=== PATIENT | female | born 1950 | race Caucasian/White ===

== ENCOUNTER → 2017-03-05 | Outpatient (CLI) | payer OTHER ==
[~2017-03-05] MED LIST: ASPI81TA28 PO; ATOR10TA82 PO; CHOL2000 PO; FEXO1TAB46 PO; HYDC25 PO; LEVO88TA PO; MELO15TA4 PO
[2017-03-05 12:50] LABS: URINE APPEARANCE CLEAR (CLEAR); URINE BILIRUBIN NEG (NEG); URINE COLOR YELLOW; URINE EPITHELIAL CELL AUTO >30 /lpf (0-5); URINE NITRITE NEG (NEG); URINE SPECIFIC GRAVITY 1.017 (1.000-1.030); UROBILINOGEN NEG (NEG); ZZUR CULT IF INDIC CLEAN CATCH YES
[2017-03-05 12:55] LABS: MANUAL MICROSCOPIC REQUIRED? NO; REVIEW REQ? NO
[2017-03-05 12:58] LABS: BASO % 0.3 %; BASO ABS # 0.02 K/uL (0-0.2); COMPLETE YES; EOS % 4.8 %; HEMATOCRIT 45.2 % (37-47); IG% 0.1 %; LYMPH % 36.1 %; LYMPH ABS # 2.49 K/uL (1.2-3.4); MEAN CELL VOLUME 89.3 fL (80-100); MEAN CORPUSCULAR HEMOGLOBIN 29.8 pg (25-34); MEAN CORPUSCULAR HGB CONC 33.4 g/dl (32-36); MEAN PLATELET VOLUME 11.9 fL (7.4-10.4); MONO % 7.4 %; NEUT % 51.3 %; PLATELET COUNT 264 K/uL (130-400); RED BLOOD COUNT 5.06 M/uL (4.2-5.4)
[2017-03-05 13:00] LABS: ESTIMATED AVERAGE GLUCOSE 117 mg/dl; HA1C FLAG Normal (Normal)
[2017-03-05 13:15] LABS: ALT/SGPT 33 U/L (12-78); AST/SGOT 21 U/L (15-37); BLOOD UREA NITROGEN 20 mg/dl (7-18); BUN/CREATININE RATIO 24.5 (10-20); CALCIUM 9.3 mg/dl (8.5-10.1); CARBON DIOXIDE 30 mmol/L (21-32); CHLORIDE 105 mmol/L (98-107); CREATININE 0.82 mg/dl (0.60-1.20); GLUCOSE 107 mg/dl (70-99); POTASSIUM 4.1 mmol/L (3.5-5.1); SODIUM 140 mmol/L (136-145)
[2017-03-05 13:26] LABS: ALKALINE PHOSPHATASE 93 U/L (45-117); CHOLESTEROL 205 mg/dl (0-200); CHOLESTEROL/HDL RATIO 3.1; HDL CHOLESTEROL 66 mg/dl; LDL CHOLESTEROL CALCULATED 96 mg/dl; TRIGLYCERIDES 214 mg/dl (0-150); VERY LOW DENSITY LIPOPROT CALC 43 mg/dl
--- NOTE | 2017-03-10 13:56 | CODING QUERY MEDICAL NECESSITY ---
CQSUPPORTING DIAGNOSIS NEEDED A supporting diagnosis is required for the test/procedure performed on this patient in order for us to be reimbursed by the patient's insurance. Please provide a supporting diagnosis for the following test/procedure listed below next to the test name along with your signature. *If there is no additional diagnosis for this patient that would support the following test/procedure please document that below next to the test/procedure. Test(s)/Procedure(s) that require a supporting diagnosis: RICHARD 03/05/17 URINE CULTURE Provider Signature: Date: Thank you Jane Massey [employer] Once completed, please kindly fax back to [phone] For questions please call [phone]
== END | disposition home or self-care (01) ==
LOC: C.LABPBG 08:03
PROVIDERS: ATTEND Internal Medicine
DX: R73.01 Impaired fasting glucose (principal); E89.0 Postprocedural hypothyroidism; E78.5 Hyperlipidemia, unspecified

== ENCOUNTER → 2017-08-16 | Outpatient (CLI) | payer OTHER ==
--- NOTE | 2017-08-16 15:35 | MAMMOGRAPHY REPORT ---
BILATERAL DIGITAL SCREENING MAMMOGRAM WITH CAD: 08/16/2017 CLINICAL HISTORY: Routine screening. TECHNIQUE: Bilateral CC, MLO and repeat right cc views with the nipple in profile were obtained. Cur rent study was also evaluated with a Computer Aided Detection (CAD) system. COMPARISON: Comparison is made to exams dated: 08/13/2016 mammogram - [facility], 09/01/2013 mammogram, 08/31/2012 mammogram, and 07/18/2010 mammogram - [facility]. BREAST COMPOSITION: The tissue of both breasts is almost entirely fatty. FINDINGS: There are minimal vascular calcifications in the breasts. No suspicious mass, architectur al distortion or cluster of microcalcifications is seen. IMPRESSION: ACR BI-RADS CATEGORY 1: NEGATIVE There is no mammographic evidence of malignancy. A 1 year screening mammogram is recommended. The pa tient will receive written notification of the results. Approximately 10% of breast cancers are not detected with mammography. A negative mammographic report should not delay biopsy if a clinically suggestive mass is present. Velia Ku M.D. ay/:08/16/2017 13:32:18 Mask Former: Gregorio JAMES(R)(M), [facility] letter sent: Normal 1/2 BI-RADS Code: ACR BI-RADS Category 1: Negative
== END | disposition home or self-care (01) ==
LOC: C.MAMM 10:19
PROVIDERS: ATTEND Internal Medicine
DX: Z12.31 Encounter for screening mammogram for malignant neoplasm of breast (principal)

== ENCOUNTER → 2018-03-14 | Outpatient (CLI) | payer OTHER ==
[~2018-03-14] MED LIST changes: +MELO-84 PO; -MELO15TA4 PO
[2018-03-14 13:05] LABS: BASO % 0.3 %; BASO ABS # 0.02 K/uL (0-0.2); EOS % 4.4 %; EOS ABS # 0.33 K/uL (0-0.5); HEMATOCRIT 42.8 % (37-47); HEMOGLOBIN 14.7 g/dL (12.0-16.0); IG# 0.01 K/uL (0.00-0.02); LYMPH % 35.6 %; LYMPH ABS # 2.66 K/uL (1.2-3.4); MEAN CELL VOLUME 87.9 fL (80-100); MEAN CORPUSCULAR HEMOGLOBIN 30.2 pg (25-34); MEAN CORPUSCULAR HGB CONC 34.3 g/dl (32-36); MEAN PLATELET VOLUME 11.3 fL (7.4-10.4); MONO % 8.6 %; MONO ABS # 0.64 K/uL (0.11-0.59); NEUT ABS # 3.81 K/uL (1.4-6.5); PLATELET COUNT 260 K/uL (130-400); RED CELL DISTRIBUTION WIDTH CV 13.7 % (11.5-14.5); WHITE BLOOD COUNT 7.47 K/uL (4.8-10.8)
[2018-03-14 13:34] LABS: HEMOGLOBIN A1C 5.6 % (4.5-5.6)
== END | disposition home or self-care (01) ==
LOC: C.LABPBG 07:45
PROVIDERS: ATTEND Internal Medicine
DX: R73.01 Impaired fasting glucose (principal); E89.0 Postprocedural hypothyroidism

== ENCOUNTER → 2018-05-24 | Outpatient (CLI) | payer OTHER ==
[2018-05-24 13:11] LABS: BLOOD UREA NITROGEN 17 mg/dl (7-18); CALCIUM 9.1 mg/dl (8.5-10.1); CARBON DIOXIDE 26 mmol/L (21-32); CREATININE 0.73 mg/dl (0.60-1.20); GLUCOSE 102 mg/dl (70-99); POTASSIUM 3.8 mmol/L (3.5-5.1); SODIUM 138 mmol/L (136-145)
== END | disposition home or self-care (01) ==
LOC: C.LABPBG 10:51
PROVIDERS: ATTEND Internal Medicine
DX: I10 Essential (primary) hypertension (principal)